=== PATIENT | female | born 1955 | race Caucasian/White ===

== ENCOUNTER → 2022-05-19 | Outpatient (CLI) | payer MEDICARE, OTHER | LOC: SLEEPLAB 19:00 | PROVIDERS: ATTEND Otolaryngology Otolaryngic Allergy | DX: G47.33 Obstructive sleep apnea (adult) (pediatric) (principal); R06.83 Snoring; G47.10 Hypersomnia, unspecified; I10 Essential (primary) hypertension; G47.00 Insomnia, unspecified | CPT/HCPCS: 95810 ==